=== PATIENT | female | born 1965 | race African-American/Black ===

== ENCOUNTER → 2017-10-26 | Outpatient (CLI) | payer BC ==
[~2017-10-26] MED LIST: COREG CR20 MG; TRIBENZOR 40-11 EAC1; VICODIN 5-5001 EACH PO
== END ==
LOC: M.MRI 10-13 09:44
DX: S73.102A Unspecified sprain of left hip, initial encounter (principal); S73.101A Unspecified sprain of right hip, initial encounter; M76.9 Unspecified enthesopathy, lower limb, excluding foot; X58.XXXA Exposure to other specified factors, initial encounter; Y93.89 Activity, other specified; Y92.89 Other specified places as the place of occurrence of the external cause; Y99.8 Other external cause status